=== PATIENT | female | born 1950 | race Caucasian/White ===

== ENCOUNTER 2018-06-21 13:51 | Outpatient (CLI) | payer BC, MEDICARE ==
[2018-06-21] MEDS ORDERED: Iopamidol 370 76% 100 ML VIAL ONE (15:29)
--- NOTE | 2018-06-21 18:45 | CT ---
FCT abdomen and pelvis with IV contrast. Oral contrast was administered. INDICATIONS: Abdominal pain COMPARISON: 2004 CT abdomen FINDINGS: Lung bases show chronic prickly change. There is a small fixed diaphragmatic hernia. Liver, spleen, and pancreas appear unremarkable. Stomach and duodenum appear unremarkable. Adrenal glands appear normal. Kidneys appear unremarkable. Collecting structures and urinary bladder appear unremarkable. Small bowel loops are normal caliber and exhibit normal fold pattern. Appendix not identified. Colon is unremarkable. Aorta is normal caliber. No evidence of retroperitoneal or mesenteric adenopathy. Uterus and adnexa are unremarkable. Subcutaneous tissues, abdominal wall, and muscular structures appear unremarkable. Osseous structures appear unremarkable. IMPRESSION: No acute findings
== END 2018-06-21 13:52 | disposition home or self-care (01) ==
LOC: CT 13:51
PROVIDERS: ATTEND Physician Assistant Medical
DX: K21.9 Gastro-esophageal reflux disease without esophagitis (principal); K58.1 Irritable bowel syndrome with constipation; R10.84 Generalized abdominal pain; E11.43 Type 2 diabetes mellitus with diabetic autonomic (poly)neuropathy; K31.84 Gastroparesis
CPT/HCPCS: 74177; 82565; Q9967

== ENCOUNTER 2018-09-02 16:00 | Outpatient (CLI) | payer BC, MEDICARE ==
--- NOTE | 2018-09-02 16:30 | RAD ---
2 views of the chest: 09/02/2018 COMPARISON: 03/08/2009 History: Chest pain, acid reflux, cough FINDINGS: There are clips in the right upper quadrant suggesting prior cholecystectomy. There is a st able dual lead transvenous pacing device inserted via a left subclavian approach. Increased linear interstitial density noted bilaterally. There is multilevel disc space narrowing and anterior osteophyte formation within the mid thoracic sp ine. No pneumothorax, pleural fluid, focal consolidation, or alveolar edema. IMPRESSION: Chronic findings as described above. No focal consolidation or alveolar edema.
== END 2018-09-02 16:01 | disposition home or self-care (01) ==
LOC: BICRAD 16:00
PROVIDERS: ATTEND Physician Assistant Medical
DX: R07.9 Chest pain, unspecified (principal); K21.9 Gastro-esophageal reflux disease without esophagitis; K31.84 Gastroparesis; J98.4 Other disorders of lung; M51.34 Other intervertebral disc degeneration, thoracic region; M25.78 Osteophyte, vertebrae; Z98.890 Other specified postprocedural states
CPT/HCPCS: 71046

== ENCOUNTER 2019-03-03 07:39 | Outpatient (CLI) | payer BC, MEDICARE ==
--- NOTE | 2019-03-03 12:45 | NM ---
Radionucleotide gastric emptying exam HISTORY: Diabetic autonomic polyneuropathy. Gastroparesis. FINDINGS: Planar images show good mixing of radiotracer within the stomach. Half life emptying calculated at 30 minutes. Time: Percent emptying 30 minutes-51% 60 minutes-63% 2 hours-84% 3 hours-99% IMPRESSION: Normal exam.
== END 2019-03-03 07:40 | disposition home or self-care (01) ==
LOC: NM 07:39
PROVIDERS: ATTEND Physician Assistant Medical
DX: K58.1 Irritable bowel syndrome with constipation (principal); K21.9 Gastro-esophageal reflux disease without esophagitis; E11.43 Type 2 diabetes mellitus with diabetic autonomic (poly)neuropathy
CPT/HCPCS: 78264; A9541

== ENCOUNTER 2019-09-18 15:20 | Outpatient (CLI) | payer BC, MEDICARE ==
--- NOTE | 2019-09-18 17:21 | RAD ---
SKULL SERIES: 09/18/19 Four views. INDICATIONS: Reason given for exam is meralgia paresthetica. Technologist describes patient concerned about a pal pable area behind right ear. BB is placed at area of concern. The bony calvarium is unremarkable by plain film. No osseous abnormality identified. IMPRESSION: Negative exam. POS: [facility]W
== END 2019-09-18 15:21 | disposition home or self-care (01) ==
LOC: SCSRAD 15:20
PROVIDERS: ATTEND Psychiatry & Neurology Neurology
DX: G57.10 Meralgia paresthetica, unspecified lower limb (principal)
CPT/HCPCS: 70260

== ENCOUNTER → 2022-03-13 | Day surgery (SDC) | payer BC, MEDICARE | END | disposition home or self-care (01) | LOC: SDC 12:57 | PROVIDERS: ATTEND Internal Medicine Gastroenterology | DX: K44.9 Diaphragmatic hernia without obstruction or gangrene (principal); K21.9 Gastro-esophageal reflux disease without esophagitis; R13.19 Other dysphagia; Z88.0 Allergy status to penicillin; Z88.5 Allergy status to narcotic agent; Z88.8 Allergy status to other drugs, medicaments and biological substances; Z91.040 Latex allergy status; Z91.041 Radiographic dye allergy status | CPT/HCPCS: 91010; 91034 ==